=== PATIENT | female | born 1990 | race Caucasian/White ===

== ENCOUNTER 2017-07-06 13:09 | Emergency (ER) | payer OTHER ==
[~2017-07-06] VITALS: Ht 160 cm; Wt 81.8 kg
[~2017-07-06 13:09] MED LIST: REGLAN10 MG PO; ZANTAC150 MG PO; ZOFRAN4 MG PO
[2017-07-06 14:00] LABS: HEMATOCRIT 42.3 % (36.0-46.0); HEMOGLOBIN 14.4 G/DL (11.9-15.5); MCH 29.4 PG (29.0-34.0); MCV 86.3 FL (83-99); PLATELET COUNT 233 K/uL (156-360); RBC DIS.WIDTH-CV 12.7 % (11.8-14.6); RBC DIS.WIDTH-SD 39.9 % (39-53); WHITE BLOOD COUNT 13.5 K/uL (4.1-10.2)
[2017-07-06 14:10] LABS: ALBUMIN 4.4 g/dL (3.2-4.8)
[2017-07-06 14:11] LABS: CHLORIDE 105 mEq/L (99-109); POTASSIUM 4.2 mEq/L (3.7-5.4); SODIUM 137 mEq/L (136-147)
[2017-07-06 14:13] LABS: GLUCOSE 137 mg/dL (70-99); TOTAL PROTEIN 7.7 g/dL (6.4-8.3)
[2017-07-06 14:13] LABS: APPEARANCE CLOUDY ((CLEAR)); BILIRUBIN NEGATIVE; BLOOD LARGE; GLUCOSE (STRIP) NEGATIVE; KETONES 80; LEUKOCYTES NEGATIVE; NITRITE NEGATIVE; PROTEIN (STRIP) 100; SPECIFIC GRAVITY 1.021 (1.000-1.030); UROBILINOGEN 0.2 MG/DL (0.2-1.0)
[2017-07-06 14:14] LABS: COLOR LT.RED ((YELLOW))
[2017-07-06 14:15] LABS: TOTAL BILIRUBIN 0.9 mg/dL (0.0-1.0)
[2017-07-06 14:16] LABS: ALKALINE PHOSPHATASE 46 IU/L (3-129)
[2017-07-06 14:17] LABS: CREATININE 0.8 mg/dL (0.6-1.3); GFR ESTIMATE (CALCULATED) > 59 mL/min/
[2017-07-06 14:18] LABS: AST (GOT) 16 IU/L (2-34); UREA NITROGEN (BUN) 12 mg/dL (9-23)
[2017-07-06 14:19] LABS: ALT (GPT) 15 IU/L (3-49)
[2017-07-06 14:26] LABS: QUANTITATIVE HCG < 4.0 MIU/ML
[2017-07-06 14:33] LABS: RED BLOOD CELLS TNTC /HPF (0-5); UCUL ADDED? YES
[2017-07-06] MEDS ORDERED: REGLAN10 MG PO (21:25)
[2017-07-06 21:32] VITALS: BP 118/95
== END 2017-07-06 21:33 | disposition home or self-care (01) ==
LOC: EME 13:09
DX: R11.2 Nausea with vomiting, unspecified (principal); F17.200 Nicotine dependence, unspecified, uncomplicated
CPT/HCPCS: 80053; 81003; 84702; 85027; 87086; 99281; 99285; J2405; J2765; J7030